=== PATIENT | male | born 1945 | race Caucasian/White ===

== ENCOUNTER 2025-04-09 21:39 | Inpatient (IN) | payer OTHER ==
[2025-04-09 23:13] LABS: HEMATOCRIT 30.7 % (40.1-51.0); HEMOGLOBIN 9.4 g/dL (13.7-17.5); MCHC 30.6 g/dl (32.3-36.5); MEAN CELL VOLUME 92.7 fl (79.0-92.2); MEAN PLT VOLUME 9.3 fl (9.4-12.4); PLATELET COUNT 269 x10^3/uL (163-337); RDW 16.8 % (12.2-16.6)
[2025-04-09 23:26] LABS: ACTIVATED PTT 31.1 SECONDS (25.2-36.5); INR 1.41 (0.83-1.09); PROTHROMBIN TIME (PATIENT) 15.5 SEC (9.7-13.0)
[2025-04-09 23:32] LABS: POTASSIUM 3.9 mmol/L (3.5-5.1)
[2025-04-09 23:34] LABS: ALBUMIN 2.5 g/dl (3.4-5.0); BLOOD UREA NITROGEN 14.5 mg/dL (7-18)
[2025-04-09] MEDS ORDERED: ACETAMINOPHEN INJECTION 100 ML ONE (23:36)
[2025-04-09 23:39] LABS: BILIRUBIN,TOTAL 0.6 mg/dL (0.2-1); TOT PROT 5.6 g/dl (6.4-8.2)
[2025-04-09] MEDS: ACETAMINOPHEN 1000 MG/100 ML BAG IVPB ONE (23:46)
[2025-04-10] MEDS ORDERED: CEFTRIAXONE 2 GM-D5W BAG 2 GM/50 ML BAG IVPB ONE (03:39)
[2025-04-10] MEDS ORDERED: VANCOMYCIN 1 GM PREMIX (F) 1 GM/200 ML BAG ONE (04:23)
[2025-04-10] MEDS: VANCOMYCIN 1,000 MG in DEXTROSE 5%-WATER - 250 ML IVPB ONE (04:31)
[2025-04-10 04:51] LABS: URINE APPEARANCE CLEAR; URINE COLOR YELLOW; URINE GLUCOSE (UA) NEGATIVE (NEGATIVE)
[2025-04-10 04:52] LABS: URINE BILIRUBIN NEGATIVE (NEGATIVE); URINE KETONE TRACE (NEGATIVE); URINE LEUK ESTERASE NEGATIVE (NEGATIVE); URINE NITRITE NEGATIVE (NEGATIVE); URINE PROTEIN NEGATIVE (NEGATIVE)
[2025-04-10] MEDS: ACETAMINOPHEN 325 MG TABLET (FP) PO SCH (04:58)
[2025-04-10] MEDS: QUEtiapine FUMARATE 100 MG TABLET (FP) PO SCH (04:58)
[2025-04-10 09:04] LABS: HEMATOCRIT 29.7 % (40.1-51.0); MCHC 30.3 g/dl (32.3-36.5); MEAN CELL VOLUME 93.4 fl (79.0-92.2); MEAN PLT VOLUME 9.2 fl (9.4-12.4); PLATELET COUNT 239 x10^3/uL (163-337); RDW 16.9 % (12.2-16.6)
[2025-04-10 09:22] LABS: POTASSIUM 3.6 mmol/L (3.5-5.1)
[2025-04-10 09:23] LABS: CALCIUM 9.5 mg/dL (8.5-10.1)
[2025-04-10 09:24] LABS: ALBUMIN 2.3 g/dl (3.4-5.0); MAGNESIUM 1.8 mg/dL (1.8-2.4)
[2025-04-10 09:25] LABS: BLOOD UREA NITROGEN 10.9 mg/dL (7-18)
[2025-04-10 09:27] LABS: CREATININE 0.8 mg/dL (0.55-1.3); PHOSPHOROUS 3.8 mg/dL (2.5-4.9)
[2025-04-10 09:29] LABS: BILIRUBIN,TOTAL 0.5 mg/dL (0.2-1); TOT PROT 5.2 g/dl (6.4-8.2)
[2025-04-10] MEDS: VANCOMYCIN HCL IN 5 % DEXTROSE 1,250 MG/250 ML BAG IV SCH ×2 (12:21→13:24)
[2025-04-10] MEDS: PIPERACILLIN/TAZOB 3.375 GM 3.375 GM in DEXTROSE 5%-WATER - 50 ML IVPB SCH (13:23)
[2025-04-10] MEDS: oxyCODONE HCL 5 MG TABLET PO PRN (13:39)
[2025-04-10] MEDS: ONDANSETRON 4 MG/2 ML VIAL IVPUSH PRN (13:39)
[2025-04-10] MEDS: PIPERACILLIN/TAZOB 3.375 GM 3.375 GM/50 ML BAG IVPB SCH (13:47)
[2025-04-10] MEDS: ALBUTEROL SO4 HFA INHALER IH PRN (14:53)
[2025-04-10 14:58] VITALS: BMI 29.3
[2025-04-10] MEDS: PIPERACILLIN/TAZOB 3.375 GM 50 ML IVPB SCH ×2 (17:12→18:15)
[2025-04-10] MEDS: MAG HYDROX/AL HYDROX/SIMETH 30 ML UNIT-DOSE CUP PO ONE (18:12)
[2025-04-10] MEDS: SODIUM CHLORIDE 1,000 ML IV SCH (19:32)
[2025-04-10] MEDS: ROSUVASTATIN CA 10 MG TABLET PO SCH (21:25)
[2025-04-10 23:19] LABS: LACTIC ACID 2.2 mmol/L (0.4-2.0)
[2025-04-11] MEDS: ACETAMINOPHEN 500 MG TABLET (FP) PO SCH (00:10)
[2025-04-11] MEDS ORDERED: MIDAZOLAM HCL 2 MG/2 ML SINGLE DOSE VIAL ONE (10:41)
[2025-04-11] MEDS ORDERED: FENTANYL CITRATE/PF 50 MCG/ML VIAL ONE (10:41)
[2025-04-11 10:57] LABS: INR 1.32 (0.83-1.09); PROTHROMBIN TIME (PATIENT) 14.5 SEC (9.7-13.0)
[2025-04-11 11:12] LABS: POTASSIUM 3.6 mmol/L (3.5-5.1)
[2025-04-11 11:18] LABS: CALCIUM 9.6 mg/dL (8.5-10.1)
[2025-04-11 11:19] LABS: BLOOD UREA NITROGEN 11.9 mg/dL (7-18); MAGNESIUM 1.7 mg/dL (1.8-2.4)
[2025-04-11 11:20] LABS: CREATININE 0.9 mg/dL (0.55-1.3)
[2025-04-11 11:21] LABS: BILIRUBIN,TOTAL 0.5 mg/dL (0.2-1)
[2025-04-11 11:22] LABS: PHOSPHOROUS 3.8 mg/dL (2.5-4.9)
[2025-04-11 11:23] LABS: TOT PROT 4.7 g/dl (6.4-8.2)
[2025-04-11] MEDS: MIDAZOLAM HCL 2 MG/2 ML SINGLE DOSE VIAL IVPUSH SCH (11:28)
[2025-04-11 12:03] LABS: HEMATOCRIT 27.4 % (40.1-51.0); HEMOGLOBIN 8.2 g/dL (13.7-17.5); MCHC 29.9 g/dl (32.3-36.5); MEAN CELL VOLUME 94.5 fl (79.0-92.2); MEAN PLT VOLUME 9.4 fl (9.4-12.4); PLATELET COUNT 239 x10^3/uL (163-337); RDW 17.1 % (12.2-16.6)
[2025-04-11] MEDS: FAMOTIDINE 20 MG TABLET PO SCH (12:53)
[2025-04-11] MEDS: POLYETHYLENE GLYCOL (HEALTHYLAX) 3350 17 GM PACKET PO SCH (12:54)
[2025-04-11] MEDS: VANCOMYCIN/WATER 1250 MG 1,250 MG/250 ML BAG IVPB SCH (13:32)
[2025-04-11] MEDS: MAGNESIUM 2GM/50ML STERILE WATER IVPB IVPB ONE (16:19)
[2025-04-11 17:04] LABS: LACTIC ACID 2.6 mmol/L (0.4-2.0)
[2025-04-12 08:32] LABS: HEMATOCRIT 26.5 % (40.1-51.0); HEMOGLOBIN 8.2 g/dL (13.7-17.5); MCHC 30.9 g/dl (32.3-36.5); MEAN CELL VOLUME 95.3 fl (79.0-92.2); MEAN PLT VOLUME 9.3 fl (9.4-12.4); PLATELET COUNT 215 x10^3/uL (163-337); RDW 17.1 % (12.2-16.6)
[2025-04-12 08:45] LABS: BASOPHILS # 0.03 x10^3/uL (0.01-0.08); EOSINOPHILS # 0.14 x10^3/uL (0.04-0.54); HEMATOCRIT 27.1 % (40.1-51.0); HEMOGLOBIN 8.1 g/dL (13.7-17.5); MCHC 29.9 g/dl (32.3-36.5); MEAN CELL VOLUME 95.4 fl (79.0-92.2); MEAN PLT VOLUME 9.2 fl (9.4-12.4); MONOCYTE % 8.5 % (5.3-12.2); PLATELET COUNT 218 x10^3/uL (163-337); RDW 17.1 % (12.2-16.6)
[2025-04-12 09:04] LABS: POTASSIUM 3.6 mmol/L (3.5-5.1)
[2025-04-12 09:07] LABS: BLOOD UREA NITROGEN 12.8 mg/dL (7-18); CALCIUM 9.1 mg/dL (8.5-10.1); MAGNESIUM 2.2 mg/dL (1.8-2.4)
[2025-04-12 09:10] LABS: CREATININE 0.8 mg/dL (0.55-1.3)
[2025-04-12 09:11] LABS: PHOSPHOROUS 3.9 mg/dL (2.5-4.9)
[2025-04-12 09:12] LABS: BILIRUBIN,TOTAL 0.6 mg/dL (0.2-1); TOT PROT 4.7 g/dl (6.4-8.2)
[2025-04-12] MEDS: PIPERACILLIN/TAZOB 4.5 GM 4.5 GM/100 ML BAG IVPB SCH (17:27)
[2025-04-12] MEDS: VANCOMYCIN 1 GM PREMIX (F) 1 GM/200 ML BAG IVPB SCH (21:35)
[2025-04-13 09:57] LABS: ABSOLUTE IMMATURE GRANULOCYTES 0.07 x10^3/uL (0.0-0.031); BASOPHILS # 0.04 x10^3/uL (0.01-0.08); EOSINOPHIL % 1.8 % (0.8-7.0); EOSINOPHILS # 0.21 x10^3/uL (0.04-0.54); HEMATOCRIT 29.9 % (40.1-51.0); HEMOGLOBIN 8.7 g/dL (13.7-17.5); MCHC 29.1 g/dl (32.3-36.5); MEAN CELL VOLUME 95.8 fl (79.0-92.2); MEAN PLT VOLUME 9.4 fl (9.4-12.4); MONOCYTE # 1.19 x10^3/uL (0.30-0.82); PLATELET COUNT 235 x10^3/uL (163-337)
[2025-04-13 10:20] LABS: POTASSIUM 3.9 mmol/L (3.5-5.1)
[2025-04-13 10:30] LABS: CALCIUM 9.4 mg/dL (8.5-10.1)
[2025-04-13 10:31] LABS: ALBUMIN 2.1 g/dl (3.4-5.0); BLOOD UREA NITROGEN 12.8 mg/dL (7-18); MAGNESIUM 2.2 mg/dL (1.8-2.4)
[2025-04-13 10:34] LABS: CREATININE 0.9 mg/dL (0.55-1.3); PHOSPHOROUS 4.1 mg/dL (2.5-4.9)
[2025-04-13 10:36] LABS: BILIRUBIN,TOTAL 0.7 mg/dL (0.2-1)
[2025-04-14 08:59] LABS: HEMATOCRIT 28.4 % (40.1-51.0); HEMOGLOBIN 8.4 g/dL (13.7-17.5); MCHC 29.6 g/dl (32.3-36.5); MEAN CELL VOLUME 95.6 fl (79.0-92.2); MEAN PLT VOLUME 9.4 fl (9.4-12.4); PLATELET COUNT 220 x10^3/uL (163-337); RDW 16.8 % (12.2-16.6)
[2025-04-14 09:32] LABS: POTASSIUM 4.1 mmol/L (3.5-5.1)
[2025-04-14 09:57] LABS: CALCIUM 9.4 mg/dL (8.5-10.1)
[2025-04-14 09:58] LABS: BLOOD UREA NITROGEN 13.3 mg/dL (7-18); MAGNESIUM 2.1 mg/dL (1.8-2.4)
[2025-04-14 10:00] LABS: CREATININE 0.8 mg/dL (0.55-1.3)
[2025-04-14 10:01] LABS: PHOSPHOROUS 4.7 mg/dL (2.5-4.9)
[2025-04-15 09:49] LABS: HEMATOCRIT 28.9 % (40.1-51.0); HEMOGLOBIN 8.6 g/dL (13.7-17.5); MCHC 29.8 g/dl (32.3-36.5); MEAN CELL VOLUME 95.7 fl (79.0-92.2); MEAN PLT VOLUME 9.4 fl (9.4-12.4); PLATELET COUNT 243 x10^3/uL (163-337); RDW 16.9 % (12.2-16.6)
[2025-04-15 09:55] LABS: INR 1.29 (0.83-1.09); PROTHROMBIN TIME (PATIENT) 14.2 SEC (9.7-13.0)
[2025-04-15 10:14] LABS: POTASSIUM 4.4 mmol/L (3.5-5.1)
[2025-04-15 10:17] LABS: BLOOD UREA NITROGEN 12.6 mg/dL (7-18); CALCIUM 9.6 mg/dL (8.5-10.1)
[2025-04-15 10:21] LABS: BILIRUBIN,TOTAL 0.4 mg/dL (0.2-1); CREATININE 0.8 mg/dL (0.55-1.3); PHOSPHOROUS 4.1 mg/dL (2.5-4.9)
[2025-04-15 10:23] LABS: TOT PROT 5.1 g/dl (6.4-8.2)
[2025-04-15] MEDS: NYSTATIN 500,000 UNITS/5 ML SUSPENSION PO SCH (13:30)
[2025-04-16 09:21] LABS: HEMATOCRIT 29.4 % (40.1-51.0); HEMOGLOBIN 8.9 g/dL (13.7-17.5); MCHC 30.3 g/dl (32.3-36.5); MEAN CELL VOLUME 93.6 fl (79.0-92.2); MEAN PLT VOLUME 9.2 fl (9.4-12.4); PLATELET COUNT 241 x10^3/uL (163-337); RDW 17.2 % (12.2-16.6)
[2025-04-16 09:51] LABS: POTASSIUM 4.2 mmol/L (3.5-5.1)
[2025-04-16 09:55] LABS: CALCIUM 10.1 mg/dL (8.5-10.1)
[2025-04-16 09:56] LABS: ALBUMIN 2.3 g/dl (3.4-5.0); BLOOD UREA NITROGEN 11.1 mg/dL (7-18); MAGNESIUM 2.2 mg/dL (1.8-2.4)
[2025-04-16 09:59] LABS: CREATININE 0.9 mg/dL (0.55-1.3)
[2025-04-16 10:00] LABS: BILIRUBIN,TOTAL 0.6 mg/dL (0.2-1); PHOSPHOROUS 4.1 mg/dL (2.5-4.9)
[2025-04-16 10:01] LABS: TOT PROT 5.5 g/dl (6.4-8.2)
[2025-04-16] MEDS: PANTOPRAZOLE 40 MG TABLET PO SCH (10:51)
[2025-04-17 09:53] LABS: HEMATOCRIT 29.5 % (40.1-51.0); HEMOGLOBIN 8.7 g/dL (13.7-17.5); MCHC 29.5 g/dl (32.3-36.5); MEAN CELL VOLUME 95.5 fl (79.0-92.2); MEAN PLT VOLUME 9.4 fl (9.4-12.4); PLATELET COUNT 233 x10^3/uL (163-337); RDW 17.2 % (12.2-16.6)
[2025-04-17 10:11] LABS: POTASSIUM 4.4 mmol/L (3.5-5.1)
[2025-04-17 10:16] LABS: ALBUMIN 2.4 g/dl (3.4-5.0); BLOOD UREA NITROGEN 15.5 mg/dL (7-18); MAGNESIUM 2.4 mg/dL (1.8-2.4)
[2025-04-17 10:19] LABS: CREATININE 0.9 mg/dL (0.55-1.3); PHOSPHOROUS 4.2 mg/dL (2.5-4.9)
[2025-04-17 10:20] LABS: BILIRUBIN,TOTAL 0.8 mg/dL (0.2-1)
[2025-04-17 10:27] LABS: TOT PROT 5.6 g/dl (6.4-8.2)
[2025-04-17] MEDS: ALBUTEROL SO4 2.5/IPRATROPIUM 0.5 INH SOL 3 ML VIAL.NEB. NEB ONE (23:40)
[2025-04-18 08:35] LABS: HEMOGLOBIN 8.2 g/dL (13.7-17.5); MCHC 29.3 g/dl (32.3-36.5); MEAN CELL VOLUME 95.9 fl (79.0-92.2); MEAN PLT VOLUME 9.4 fl (9.4-12.4); PLATELET COUNT 226 x10^3/uL (163-337); RDW 17.2 % (12.2-16.6)
[2025-04-18 08:43] LABS: POTASSIUM 4.2 mmol/L (3.5-5.1)
[2025-04-18 08:56] LABS: CALCIUM 9.7 mg/dL (8.5-10.1)
[2025-04-18 08:57] LABS: ALBUMIN 2.3 g/dl (3.4-5.0); BLOOD UREA NITROGEN 19.7 mg/dL (7-18); MAGNESIUM 2.1 mg/dL (1.8-2.4)
[2025-04-18 09:01] LABS: BILIRUBIN,TOTAL 0.7 mg/dL (0.2-1); PHOSPHOROUS 4.2 mg/dL (2.5-4.9); TOT PROT 5.4 g/dl (6.4-8.2)
[2025-04-18] MEDS ORDERED: ACETAMINOPHEN 325 MG TABLET (FP) PO PRN (16:49)
[2025-04-18] MEDS: ACETAMINOPHEN 325 MG TABLET (FP) PO ONE (16:57)
[2025-04-19 08:26] LABS: HEMATOCRIT 26.4 % (40.1-51.0); HEMOGLOBIN 7.9 g/dL (13.7-17.5); MCHC 29.9 g/dl (32.3-36.5); MEAN PLT VOLUME 8.9 fl (9.4-12.4); PLATELET COUNT 228 x10^3/uL (163-337); RDW 17.3 % (12.2-16.6)
[2025-04-19 08:46] LABS: CALCIUM 9.7 mg/dL (8.5-10.1)
[2025-04-19 08:47] LABS: ALBUMIN 2.2 g/dl (3.4-5.0); BLOOD UREA NITROGEN 18.3 mg/dL (7-18)
[2025-04-19 08:49] LABS: PHOSPHOROUS 3.8 mg/dL (2.5-4.9)
[2025-04-19 08:51] LABS: TOT PROT 5.4 g/dl (6.4-8.2)
[2025-04-20 09:54] LABS: ABSOLUTE IMMATURE GRANULOCYTES 0.09 x10^3/uL (0.0-0.031); BASOPHILS # 0.05 x10^3/uL (0.01-0.08); EOSINOPHILS # 0.15 x10^3/uL (0.04-0.54); HEMATOCRIT 27.3 % (40.1-51.0); HEMOGLOBIN 8.1 g/dL (13.7-17.5); MCHC 29.7 g/dl (32.3-36.5); MEAN CELL VOLUME 96.5 fl (79.0-92.2); MEAN PLT VOLUME 9.7 fl (9.4-12.4); MONOCYTE % 10.3 % (5.3-12.2); PLATELET COUNT 249 x10^3/uL (163-337); RDW 17.2 % (12.2-16.6)
[2025-04-20 10:18] LABS: POTASSIUM 4.1 mmol/L (3.5-5.1)
[2025-04-20 10:20] LABS: CALCIUM 9.5 mg/dL (8.5-10.1)
[2025-04-20 10:21] LABS: ALBUMIN 2.3 g/dl (3.4-5.0); BLOOD UREA NITROGEN 20.1 mg/dL (7-18)
[2025-04-20 10:24] LABS: CREATININE 0.8 mg/dL (0.55-1.3)
[2025-04-20 10:25] LABS: BILIRUBIN,TOTAL 0.8 mg/dL (0.2-1)
[2025-04-20 10:26] LABS: TOT PROT 5.7 g/dl (6.4-8.2)
[2025-04-21 09:47] LABS: ABSOLUTE IMMATURE GRANULOCYTES 0.05 x10^3/uL (0.0-0.031); BASOPHILS # 0.05 x10^3/uL (0.01-0.08); EOSINOPHILS # 0.22 x10^3/uL (0.04-0.54); HEMATOCRIT 26.9 % (40.1-51.0); HEMOGLOBIN 7.9 g/dL (13.7-17.5); MCHC 29.4 g/dl (32.3-36.5); MEAN CELL VOLUME 95.7 fl (79.0-92.2); MEAN PLT VOLUME 9.6 fl (9.4-12.4); MONOCYTE # 1.25 x10^3/uL (0.30-0.82); MONOCYTE % 11.2 % (5.3-12.2); PLATELET COUNT 244 x10^3/uL (163-337); RDW 17.2 % (12.2-16.6)
[2025-04-21 10:30] LABS: ALBUMIN 2.3 g/dl (3.4-5.0); CALCIUM 9.8 mg/dL (8.5-10.1)
[2025-04-21 10:31] LABS: BLOOD UREA NITROGEN 17.4 mg/dL (7-18)
[2025-04-21 10:34] LABS: CREATININE 0.8 mg/dL (0.55-1.3)
[2025-04-21 10:35] LABS: TOT PROT 5.8 g/dl (6.4-8.2)
[2025-04-21] MEDS: CEFTRIAXONE 1 G/50 ML PREMIX 50 ML IVPB SCH (13:23)
[2025-04-22 08:15] LABS: HEMOGLOBIN 7.4 g/dL (13.7-17.5); MCHC 28.5 g/dl (32.3-36.5); MEAN CELL VOLUME 96.7 fl (79.0-92.2); MEAN PLT VOLUME 9.4 fl (9.4-12.4); PLATELET COUNT 219 x10^3/uL (163-337); RDW 17.2 % (12.2-16.6)
[2025-04-22 08:26] LABS: POTASSIUM 4.1 mmol/L (3.5-5.1)
[2025-04-22 08:34] LABS: CALCIUM 9.9 mg/dL (8.5-10.1)
[2025-04-22 08:35] LABS: BLOOD UREA NITROGEN 16.4 mg/dL (7-18); MAGNESIUM 2.3 mg/dL (1.8-2.4)
[2025-04-22 08:37] LABS: CREATININE 0.7 mg/dL (0.55-1.3)
[2025-04-22 08:39] LABS: BILIRUBIN,TOTAL 0.7 mg/dL (0.2-1); PHOSPHOROUS 3.8 mg/dL (2.5-4.9); TOT PROT 5.1 g/dl (6.4-8.2)
[2025-04-22] MEDS ORDERED: guaiFENesin 200 MG/10 ML 10 ML UNIT-DOSE CUPS PO PRN (10:21)
[2025-04-22] MEDS: ALBUTEROL SO4 2.5/IPRATROPIUM 0.5 INH SOL 3 ML VIAL.NEB. NEB SCH (12:20)
[2025-04-22] MEDS: LIDOCAINE 5% TOPICAL PATCH TP SCH (13:23)
[2025-04-22] MEDS: methylPREDNISolone NA SUCC 40 MG/1 ML VIAL IVPUSH SCH (13:23)
[2025-04-22] MEDS: REMDESIVIR 200 MG in SODIUM CHLORIDE 250 ML IVPB ONE (13:24)
[2025-04-22] MEDS: BENZONATATE 200 MG CAPSULE PO PRN (13:24)
[2025-04-22] MEDS: LIDOCAINE PATCH REMOVAL MC SCH (21:56)
[2025-04-23 08:38] LABS: ABSOLUTE IMMATURE GRANULOCYTES 0.09 x10^3/uL (0.0-0.031); BASOPHILS # 0.02 x10^3/uL (0.01-0.08); HEMATOCRIT 25.4 % (40.1-51.0); HEMOGLOBIN 7.5 g/dL (13.7-17.5); MCHC 29.5 g/dl (32.3-36.5); MEAN CELL VOLUME 95.1 fl (79.0-92.2); MONOCYTE # 0.52 x10^3/uL (0.30-0.82); PLATELET COUNT 238 x10^3/uL (163-337); RDW 17.2 % (12.2-16.6)
[2025-04-23 09:02] LABS: ALBUMIN 2.2 g/dl (3.4-5.0); POTASSIUM 4.8 mmol/L (3.5-5.1)
[2025-04-23 09:03] LABS: BLOOD UREA NITROGEN 19.2 mg/dL (7-18); CALCIUM 10.4 mg/dL (8.5-10.1); MAGNESIUM 2.3 mg/dL (1.8-2.4)
[2025-04-23 09:06] LABS: BILIRUBIN,TOTAL 0.4 mg/dL (0.2-1); CREATININE 0.7 mg/dL (0.55-1.3); TOT PROT 5.6 g/dl (6.4-8.2)
[2025-04-23] MEDS: REMDESIVIR 100 MG in SODIUM CHLORIDE 250 ML IVPB SCH (13:38)
[2025-04-23] MEDS ORDERED: REMDESIVIR 200 MG in SODIUM CHLORIDE 250 ML IVPB ONE (15:31)
[2025-04-24 08:51] LABS: HEMOGLOBIN 8.1 g/dL (13.7-17.5); MEAN CELL VOLUME 96.1 fl (79.0-92.2); MEAN PLT VOLUME 9.5 fl (9.4-12.4); PLATELET COUNT 352 x10^3/uL (163-337); RDW 17.7 % (12.2-16.6)
[2025-04-24 09:46] LABS: POTASSIUM 4.7 mmol/L (3.5-5.1)
[2025-04-24 09:58] LABS: ALBUMIN 2.4 g/dl (3.4-5.0); CALCIUM 10.3 mg/dL (8.5-10.1)
[2025-04-24 09:59] LABS: MAGNESIUM 2.3 mg/dL (1.8-2.4)
[2025-04-24 10:00] LABS: BILIRUBIN,TOTAL 0.4 mg/dL (0.2-1); CREATININE 0.8 mg/dL (0.55-1.3)
[2025-04-24 10:06] LABS: TOT PROT 5.7 g/dl (6.4-8.2)
[2025-04-24 10:07] LABS: BLOOD UREA NITROGEN 22.7 mg/dL (7-18)
[2025-04-24] MEDS ORDERED: methylPREDNISolone NA SUCC 40 MG/1 ML VIAL IVPUSH SCH (10:39)
[2025-04-24] MEDS: POLYETHYLENE GLYCOL (HEALTHYLAX) 3350 17 GM PACKET PO SCH (21:18)
[2025-04-24 21:24] VITALS: RESP 17
[2025-04-25 06:38] VITALS: PULSE 74
[2025-04-25 08:58] LABS: MEAN PLT VOLUME 9.6 fl (9.4-12.4)
[2025-04-25 09:00] LABS: HEMATOCRIT 27.8 % (40.1-51.0); HEMOGLOBIN 8.2 g/dL (13.7-17.5); MCHC 29.5 g/dl (32.3-36.5); MEAN CELL VOLUME 96.9 fl (79.0-92.2); PLATELET COUNT 350 x10^3/uL (163-337); RDW 18.6 % (12.2-16.6)
[2025-04-25 09:20] LABS: POTASSIUM 4.3 mmol/L (3.5-5.1)
[2025-04-25 09:29] LABS: CALCIUM 10.5 mg/dL (8.5-10.1)
[2025-04-25 09:30] LABS: ALBUMIN 2.3 g/dl (3.4-5.0)
[2025-04-25 09:31] LABS: CREATININE 0.9 mg/dL (0.55-1.3); MAGNESIUM 2.1 mg/dL (1.8-2.4)
[2025-04-25 09:33] LABS: BILIRUBIN,TOTAL 0.5 mg/dL (0.2-1); TOT PROT 5.7 g/dl (6.4-8.2)
[2025-04-25] MEDS: predniSONE 20 MG TABLET (UD) PO SCH (10:55)
[2025-04-25 15:12] VITALS: BP 133/58; TEMP 97
[2025-04-25] MEDS: AMOX TR/POT CLAV 875MG/125MG TABLETS (FP) PO SCH (18:20)
== END 2025-04-25 19:34 | disposition home health service (06) | DRG 987 ==
LOC: JER 21:39 → JERBED 04-10 02:43 → J5S 04-10 05:21 → J8W 04-18 17:19
PROVIDERS: ADMIT Student in an Organized Health Care Education/Training Program; ATTEND Nurse Practitioner Acute Care
PROC: 0W9H3ZX Drainage of Retroperitoneum, Percutaneous Approach, Diagnostic (ICD-10-PCS; 2025-04-10)
PROC: 0W9L3ZX Drainage of Lower Back, Percutaneous Approach, Diagnostic (ICD-10-PCS; 2025-04-10)
PROC: 009U3ZX Drainage of Spinal Canal, Percutaneous Approach, Diagnostic (ICD-10-PCS; 2025-04-10)
PROC: B01BZZZ Fluoroscopy of Spinal Cord (ICD-10-PCS; 2025-04-10)
PROC: 0DB78ZX Excision of Stomach, Pylorus, Via Natural or Artificial Opening Endoscopic, Diagnostic (ICD-10-PCS; 2025-04-15)
PROC: 0DB98ZX Excision of Duodenum, Via Natural or Artificial Opening Endoscopic, Diagnostic (ICD-10-PCS; principal; 2025-04-15 14:15)
PROC: XW033E5 Introduction of Remdesivir Anti-infective into Peripheral Vein, Percutaneous Approach, New Technology Group 5 (ICD-10-PCS; 2025-04-22)
DX: G06.1 Intraspinal abscess and granuloma (principal); E43 Unspecified severe protein-calorie malnutrition; U07.1 COVID-19; G95.89 Other specified diseases of spinal cord; J44.1 Chronic obstructive pulmonary disease with (acute) exacerbation; K21.9 Gastro-esophageal reflux disease without esophagitis; Z85.46 Personal history of malignant neoplasm of prostate; D72.829 Elevated white blood cell count, unspecified; R63.4 Abnormal weight loss; Z68.29 Body mass index [BMI] 29.0-29.9, adult; R22.2 Localized swelling, mass and lump, trunk; R19.09 Other intra-abdominal and pelvic swelling, mass and lump; R50.9 Fever, unspecified; R11.2 Nausea with vomiting, unspecified; R61 Generalized hyperhidrosis; R21 Rash and other nonspecific skin eruption; E78.5 Hyperlipidemia, unspecified; D64.9 Anemia, unspecified
CPT/HCPCS: 10030; 36415; 49180; 71045-TC-FY; 71270-TC; 72125-TC; 72128-TC; 72131-TC; 72240-TC-FY; 72255-TC-FY; 72265-TC-FY; 74177-TC; 76705-TC; 77012-TC; 80048; 80053; 81003; 82607; 82728; 82746; 82962; 83036; 83540; 83550; 83605; 83615; 83735; 84100; 85025; 85027; 85610; 85730; 86140; 86780; 86850; 86900; 86901; 87040; 87070; 87075; 87086; 87102; 87116; 87186; 87205; 87206; 87210; 87635; 88108; 88305-TC; 88342-TC; 94640; 94761; 97116-GP; 97162-GP; 99285-25; G0480; J0248